=== PATIENT | female | born 1955 | race Caucasian/White ===

== ENCOUNTER 2018-01-23 12:46 | Outpatient (CLI) | payer OTHER ==
--- NOTE | 2018-01-23 14:40 | MMO ---
BILATERAL DIGITAL SCREENING MAMMOGRAMS: History: 62-year-old female presents for digital screening mammography. Comparison: 11-15-15, 02-08-12 This study is interpreted with the assistance of computer aided detection. FINDINGS: Scattered areas of fibroglandular density are noted bilaterally. Bilateral stable typically benign ca lcifications. Multiple bilateral stable parenchymal density asymmetries. IMPRESSION: BIRADS category 2 - benign findings. Continue routine screening. POS: FERMIN
== END 2018-01-23 12:47 | disposition home or self-care (01) ==
LOC: SCSMAMMO 12:46
PROVIDERS: ATTEND Internal Medicine
DX: Z12.31 Encounter for screening mammogram for malignant neoplasm of breast (principal)
CPT/HCPCS: 77067

== ENCOUNTER 2019-04-04 10:56 | Outpatient (CLI) | payer OTHER ==
--- NOTE | 2019-04-04 13:21 | MMO ---
Bilateral MAMMO Bilat Screen [facility]. CLINICAL HISTORY: Patient is 63 years old and is seen for screening. The patient has the following family history of breast cancer: mother, at age 71. The patient has no personal history of cancer. VIEWS: The views performed were: bilateral craniocaudal with tomosynthesis and bilateral mediolateral oblique with tomosynthesis. FILMS COMPARED: The present examination has been compared to prior imaging studies performed at [facility] on 01/23/2018, and at [facility] on 02/18/2013, 02/19/2014 and 11/15/2015. This study has been interpreted with the assistance of computer-aided detection. MAMMOGRAM FINDINGS: There are scattered fibroglandular densities. Benign calcifications are noted bilaterally. There are no suspicious masses, suspicious calcifications, or new areas of architectural distortion. IMPRESSION: THERE IS NO MAMMOGRAPHIC EVIDENCE OF MALIGNANCY. A ROUTINE FOLLOW-UP MAMMOGRAM IN 1 YEAR IS RECOMMENDED. THE RESULTS OF THIS EXAM WERE SENT TO THE PATIENT. ACR BI-RADS Category 2 - Benign finding MAMMOGRAPHY NOTE: 1. A negative mammogram report should not delay a biopsy if a dominant of clinically suspicious mass is present. 2. Approximately 10% to 15% of breast cancers are not detected by mammography. 3. Adenosis and dense breasts may obscure an underlying neoplasm. Reported by: MAT LOPEZ MD Electonically Signed: [id number]
== END 2019-04-04 10:57 | disposition home or self-care (01) ==
LOC: BICMAMMO 10:56
PROVIDERS: ATTEND Internal Medicine
DX: Z12.31 Encounter for screening mammogram for malignant neoplasm of breast (principal); Z80.3 Family history of malignant neoplasm of breast
CPT/HCPCS: 77063; 77067